=== PATIENT | female | born 1990 | race Caucasian/White ===

== ENCOUNTER 2018-11-29 18:37 | Emergency (ER) | payer SELFPAY ==
[~2018-11-29] VITALS: Ht 160 cm; Wt 42.8 kg
[2018-11-29 18:48] VITALS: Ht 160 cm; Wt 42.8 kg
[2018-11-29] MEDS ORDERED: IBUP-1561 PO (21:18)
--- NOTE | 2018-11-29 21:20 | ERD ---
ER Documentation Chief Complaint Chief Complaint RIGHT BREAST PAIN X THURSDAY. HPI 28-year-old female presents with a lump on her right breast noticed last week. She is not breast-feeding. She has no redness, fevers, cough, shortness of breath or chest pain. ROS All systems reviewed and are negative except as per history of present illness. Medications Home Meds Active Scripts Ibuprofen* (Motrin*) 400 Mg Tab, 400 MG PO Q6, #20 TAB Prov:GERA RAY MD 11/29/18 FmHx Family History: No diabetes, No coronary disease, No other Physical Exam Vitals Vital Signs Date Temp Pulse Resp B/P (MAP) Pulse Ox O2 O2 Flow FiO2 Time Delivery Rate 11/29/18 97.5 80 16 114/59 98 18:48 (77) Physical Exam Const: No acute distress Head: Atraumatic Eyes: Normal Conjunctiva ENT: Normal External Ears, Nose and Mouth. Neck: Full range of motion. No meningismus. Resp: Clear to auscultation bilaterally. Breast exam performed with manager fund. There is approximately 2 to 3 cm ulcers described mobile subcutaneous lesion at 11:00 in the right breast. No erythema, warmth, fluctuance. Cardio: Regular rate and rhythm, no murmurs Abd: Soft, non tender, non distended. Normal bowel sounds Skin: No petechiae or rashes Back: No midline or flank tenderness Ext: No cyanosis, or edema Neur: Awake and alert Psych: Normal Mood and Affect Procedures/MDM Limited breast ultrasound shows a 2 to 3 cm hypoechoic lesion in the right breast at 12:00. No appreciable abscess. Patient presents with a right breast mass noticed last week. Concern is for malignancy although may be fibroadenoma. Discharge instructions recommend primary care follow-up and we will administer ibuprofen. Further evaluation can be performed on outpatient basis. Is no signs of abscess, cellulitis, cardiac chest pain, pneumonia, additional concerning signs or symptoms. Patient was nowhere to be found prior to discharge patient may have eloped. Verbal instructions to nursing staff mid-level providers will be given if and when patient returns for aftercare instructions. Departure Diagnosis: Primary Impression: Breast pain Condition: Stable Patient Instructions: Breast Mass, Uncertain Cause Referrals: DOCTOR,NOT ON STAFF (PCP) [facility] Usted se buitrago hecho un examen mdico de control que le indica que no est en sultana condicin que requiera tratamiento urgente en el Departamento de Emergencia. Un estudio ms profundo y el tratamiento de ward condicin pueden esperar sin ningn riesgo hasta que usted sea atendida/o en el consultorio de ward mdico o sultana clnica. Es responsabilidad suya arreglar sultana sonali para el seguimiento del chelle. MANEJO DE CONDICIONES NO URGENTES EN EL FUTURO 1) Si usted tiene un mdico de atencin primaria: Usted debera llamar a ward mdico de atencin primaria antes de venir al departamento de emergencia. Despus de las horas de consultorio, ward doctor o ward asociado/a est disponible por telfono. El mdico o enfermero de jaylyn en el servicio telefnico puede asesorarle por aime medio para atender el problema, o chelle contrario se puede programar sultana sonali. 2) Si usted no tiene un mdico de atencin primaria: Llame al mdico o clnica de referencia que aparece abajo [place] las horas de consultorio para hacer sultana sonali para que le vean. CLINICAS: [facility] [phone] [facility] [id number] [facility] [phone] [facility]. [facility] [phone] [facility] [address] [place] [id number] [phone] [facility]. [phone] Additional Instructions: Hay un bolita. no es un abscesso. recomiendo mas estudios con ward doctor. GERA RAY MD Nov 29, 2018 21:20
[2018-11-29 22:54] VITALS: BP 122/67; PULSE 66; RESP 18
== END 2018-11-29 22:55 | disposition left against medical advice (07) ==
LOC: FTE 18:37
DX: N64.4 Mastodynia (principal)
CPT/HCPCS: 76642